=== PATIENT | male | born 1965 | race Caucasian/White ===

== ENCOUNTER 2022-10-20 17:54 | Emergency (ER) | payer BC ==
[2022-10-20] MEDS ORDERED: Cephalexin 500 MG Cap ONE (20:00)
[2022-10-20] MEDS ORDERED: Lidocaine 1% 5 ML VIAL INJECT ONE (21:10)
== END 2022-10-20 20:55 | disposition home or self-care (01) ==
LOC: LB.ED 17:54
DX: S61.210A Laceration without foreign body of right index finger without damage to nail, initial encounter (principal); W26.8XXA Contact with other sharp object(s), not elsewhere classified, initial encounter
CPT/HCPCS: 12001; 99282; A9270-GY